=== PATIENT | male | born 1995 | race Caucasian/White ===

== ENCOUNTER 2022-12-28 20:51 | Emergency (ER) | payer SELFPAY ==
[2022-12-28 21:19] VITALS: BP 134/84
[2022-12-28] MEDS ORDERED: valACYclovir 500 MG TABLET PO STA (21:51)
--- NOTE | 2022-12-28 22:21 | ED Physician Documentation ---
PD HPI SKIN - Stated complaint Stated Complaint: MALE - Chief complaint Chief Complaint: Wound - History obtained from History obtained from: Patient, Other (automotive parts interpreter, Zupplernorberto) - Additional information Additional information: Patient is a 27-year-old male presenting for evaluation of a rash that is on his genital region for the past 2 days. Patient describes it as multiple blisters almost pimple-like. He has reported clear drainage from the wounds. He reports that it is painful. He has had no issues with urination. No blood in urine. No penile discharge. Denies prior history of similar rashes. Review of Systems Constitutional: denies: Fever Cardiac: denies: Chest pain / pressure Respiratory: denies: Dyspnea GI: denies: Abdominal Pain : denies: Dysuria, Discharge, Testicular pain Skin: reports: Rash PD PAST MEDICAL HISTORY - Past Medical History Past Medical History: No - Past Surgical History Past Surgical History: No - Present Medications Home Medications: Ambulatory Orders Medication Instructions Recorded Confirmed Fexofenadine [Dina] 60 mg PO DAILY PRN 12/28/22 12/28/22 valACYclovir [Valtrex] 1,000 mg PO BID 10 Days #40 tablet 12/28/22 - Allergies Allergies/Adverse Reactions: Allergies Allergy/AdvReac Type Severity Reaction Status Date / Time No Known Drug Allergies Allergy Verified 12/28/22 21:06 - Social History Does the pt smoke?: No Smoking Status: Never smoker Does the pt drink ETOH?: No Does the pt have substance abuse?: No - Immunizations Immunizations are current?: Yes - POLST Patient has POLST: No PD ED PE NORMAL - General General: Alert and oriented X 3, No acute distress, Well developed/nourished - HEENT HEENT: Atraumatic - Neck Neck: Supple, no meningeal sign - Respiratory Respiratory: No respiratory distress - Abdomen Abdomen: Soft, Non tender - Male Male : Filler And Trimmer present (Renetta ABRAHAM), Other (Multiple groupings of shallow ulcerations, blisters To penis and scrotum; No testicular swelling or tenderness) - Neuro Neuro: Normal speech Results - Vitals Vitals: Vital Signs - 24 hr 12/28/22 21:06 Temperature 36.5 C Heart Rate 86 Respiratory 16 Rate Blood Pressure 134/84 H O2 Saturation 96 Oxygen O2 Source Room air - Labs Labs: Laboratory Tests 12/28/22 21:50 Chlam trachomat DNA PCR NEGATIVE N.gonorrhoeae DNA (PCR) NEGATIVE T. vaginalis (PCR) NEGATIVE PD Medical Decision Making - ED course ED course: Patient with rash to genital region. Concerning for herpes rash. I discussed this with the patient using a automotive parts interpreter. I have sent a swab for HSV. I discussed treatment well with valacyclovir and need for close follow-up with walk-in clinic to follow-up on swab result as well as to discuss further management as patient does not currently have a PCP. Patient is agreeable to this treatment. Urine analysis was also sent for gonorrhea and chlamydia testing which is negative.Patient counseled on worsening symptoms to return for. Departure - Departure Disposition: Home, Self Care Clinical Impression: Genital herpes Condition: Stable Instructions: ED Herpes Simplex Virus Type 2 Prescriptions: valACYclovir [Valtrex] 1,000 mg PO BID 10 Days #40 tablet Print Language: Tuvaluan Comments: I am concerned that the rash you have on your genital region is related to a herpes outbreak. Therefore I have started you on an antiviral medicine called valacyclovir. We have also sent a swab to try and confirm this diagnosis. I would recommend follow-up with the walk-in clinic in 7 to 10 days to make sure that your symptoms are getting better and to review your swab as well as to discuss Possibly starting a maintenance dose of medicine to prevent other outbreaks. If you develop any worsening symptoms please return to the emergency department. I sent your prescription to [facility]. No sexual contact until your rash completely resolved. GOOGLE TRANSLATE Me preocupa que el sarpullido que tiene en la regin genital est relacionado con un brote de herpes. Por lo tanto, le comenc con un medicamento antiviral llamado valaciclovir. Boo hemos enviado un hisopo para intentar confirmar lesli diagnstico. Recomendara un seguimiento con la clnica ambulatoria en 7 a 10 john para asegurarse de que terrence sntomas estn mejorando y para revisar cesar hisopo, as yakov para discutir la posibilidad de comenzar kyle dosis de mantenimiento de la medicina para prevenir otros brotes. Si desarrolla algn sntoma que empeora, regrese al departamento de emergencias. Envi cesar receta a [facility]. No tenga contacto sexual hasta que cesar sarpullido se haya resuelto por completo. Discharge Date/Time: 12/28/22 22:40
[2022-12-29 00:18] LABS: CHLAMYDIA TRACHOMATIS DNA NEGATIVE (NEGATIVE); NEISSERIA GONORRHOEAE DNA NEGATIVE (NEGATIVE); TRICHOMONAS VAGINALIS DNA NEGATIVE (NEGATIVE)
[2022-12-31 21:07] LABS: HSV-1 DNA Negative (Negative); HSV-2 DNA Negative (Negative)
== END 2022-12-28 22:40 | disposition home or self-care (01) ==
LOC: ED 20:51
DX: A60.01 Herpesviral infection of penis (principal); A60.02 Herpesviral infection of other male genital organs
CPT/HCPCS: 87491; 87529; 87591; 87661; 99283; A9270; 87252

== ENCOUNTER 2022-12-31 19:19 | Emergency (ER) | payer SELFPAY ==
[2022-12-31 20:02] VITALS: BP 136/86
[2022-12-31 20:20] LABS: BILIRUBIN,URINE NEGATIVE (NEGATIVE); GLUCOSE, URINE (UA) NEGATIVE (NEGATIVE); KETONES,URINE (UA) NEGATIVE (NEGATIVE); LEUKOCYTE ESTERASE, URINE NEGATIVE (NEGATIVE); NITRITE,URINE NEGATIVE (NEGATIVE); OCCULT BLOOD,URINE NEGATIVE (NEGATIVE); PH,URINE 6.5 PH (5.0-7.5); PROTEIN,URINE NEGATIVE (NEGATIVE); UROBILINOGEN,URINE 0.2 (NORMAL) E.U./dL (NORMAL)
[2022-12-31 20:21] LABS: CLARITY,URINE CLEAR (CLEAR)
--- NOTE | 2022-12-31 20:35 | ED Physician Documentation ---
PD HPI MALE - Stated complaint Stated Complaint: MALE - Chief complaint Chief Complaint: Abd Pain - History obtained from History obtained from: Patient, Family (Patient's who is in ED at patient's bedside.) - History of Present Illness Recently seen: Emergency Dept - Additional information Additional information: Patient presents for painful rash on his genitals, groin, radiating around to buttocks. He was treated and released from this emergency department 3 days ago for painful rash on his genitals. The of the patient says that the rash on genitals began approximately 5 or 6 days ago. However, the groin rash that also involves his perineum and buttocks has been present for approximate 1 year. He has not seen a medical professional for this rash until he was here 3 days ago. Denies penile discharge. Patient was prescribed valacyclovir, 10-day course, when he was here 3 days ago. He presents due to worsening pain associated with the rash. Denies fever. Review of Systems Constitutional: denies: Fever : denies: Dysuria, Discharge Skin: reports: Rash PD PAST MEDICAL HISTORY - Past Medical History Past Medical History: No Cardiovascular: None Respiratory: None Neuro: None Endocrine/Autoimmune: None GI: None : None HEENT: None Psych: None Musculoskeletal: None Derm: None - Past Surgical History Past Surgical History: No - Present Medications Home Medications: Ambulatory Orders Medication Instructions Recorded Confirmed Fexofenadine [Dina] 60 mg PO DAILY PRN 12/28/22 12/31/22 valACYclovir [Valtrex] 1,000 mg PO BID 10 Days #40 tablet 12/28/22 Clotrimazole 1% Cream [Lotrimin 1% 1 gm TP BID #60 gm 12/31/22 Cream] Doxycycline [Vibramycin] 100 mg PO BID #14 tablet 12/31/22 HYDROcod/ACETAM 5/325 [Widen 5/325] 1 - 2 tablet PO Q6H PRN #14 tablet 12/31/22 - Allergies Allergies/Adverse Reactions: Allergies Allergy/AdvReac Type Severity Reaction Status Date / Time No Known Drug Allergies Allergy Verified 12/31/22 19:51 - Social History Does the pt smoke?: No Smoking Status: Never smoker Does the pt drink ETOH?: No Does the pt have substance abuse?: No - Immunizations Immunizations are current?: Yes - POLST Patient has POLST: No PD ED PE NORMAL - Vitals Vital signs reviewed: Yes - General General: Alert and oriented X 3, No acute distress, Well developed/nourished PD ED PE EXPANDED - Male Male : Other (confluent, raised erythema bilateral inguinal creases, perineum, and gluteal cleft. there are sharp margins. the margins on the posterior aspect (gluteal cleft) are white, scaling. the inguinal creases include areas that are white, moist. there are a few intact papules on shaft of penis. ). No: Discharge Results - Vitals Vitals: Vital Signs - 24 hr 12/31/22 19:35 Temperature 36.6 C Heart Rate 91 Respiratory 18 Rate Blood Pressure 136/86 H O2 Saturation 99 Oxygen O2 Source Room air - Labs Labs: Laboratory Tests 12/31/22 19:40 Urine Color YELLOW Urine Clarity CLEAR Urine pH 6.5 Ur Specific [place] 1.020 Urine Protein NEGATIVE Urine Glucose (UA) NEGATIVE Urine Ketones NEGATIVE Urine Occult Blood NEGATIVE Urine Nitrite NEGATIVE Urine Bilirubin NEGATIVE Urine Urobilinogen 0.2 (NORMAL) Ur Leukocyte Esterase NEGATIVE Ur Microscopic Review NOT INDICATED Urine Culture Comments NOT INDICATED PD Medical Decision Making - ED course Complexity details: considered differential, d/w patient, d/w family ED course: Patient returns the emergency department after being treated and released 2 days ago for rash on penis and groin. He was prescribed valacyclovir which he failed and is taking as prescribed. The reason for the return is worsening pain associate with a rash in the groin. Leann exam, the majority of the rash is strongly suggestive of tinea cruris. I am prescribing 3 weeks of twice daily clotrimazole cream. I recommended to him that he continues the valacyclovir as prescribed. In addition, because of areas of confluent erythema in bilateral inguinal regions, I am also prescribing doxycycline for possible bacterial superinfection (cellulitis). Finally, for his pain, he is given a take-home pack of Vicodin and short course is prescribed. I note that results of testing performed in ED 12/28/22 are negative for gonorrhea, chlamydia, and HSV I and II. I am prescribing a short course of short-acting opioid pain medication for this patient. I have reviewed the patients [employer]PORATE [employer] OFFICER and no concerning findings were noted. I have discussed that the opioids are for short term therapy only, and will not be refilled from the ED. Departure - Departure Disposition: 01 Home, Self Care Clinical Impression: Tinea cruris Cellulitis Qualifiers: Site of cellulitis: trunk Site of cellulitis of trunk: groin Qualified Code(s): L03.314 - Cellulitis of groin Condition: Good Instructions: ED Infec Skin Cellulitis, ED Tinea Cruris General Follow-Up: Rox Fernández MD [Provider Admit Priv/Credential] - Prescriptions: Clotrimazole 1% Cream [Lotrimin 1% Cream] 1 gm TP BID #60 gm HYDROcod/ACETAM 5/325 [Widen 5/325] 1 - 2 tablet PO Q6H PRN #14 tablet PRN Reason: Pain Doxycycline [Vibramycin] 100 mg PO BID #14 tablet Print Language: Belarusian Comments: Continue with the antiviral medication that was prescribed on your previous visit (December 28). In addition to the valacyclovir that you are taking, I am prescribing you THREE more medications. I am prescribing an antifungal medication; I think that most of the rash, possibly all of it, is due to a fungal infection sometimes called "jock itch". The anti-fungal medication is called clotrimazole. Apply it to the rash twice per day for up to three weeks (can stop once the rash resolves). There are some areas in the groin that look like they might also have become infected by a bacteria; this infection is called cellulitis, and I am prescribing an antibiotic (doxycycline) for this. I am also prescribing Vicodin (narcotic/opiate pain medication). Do not drive for at least 6 hours after taking a dose of the Vicodin, as it might make you drowsy. Try to limit the use of the vicodin to bedtime. Contact your primary care provider (your doctor) tomorrow when the office next opens to arrange for the next available appointment for reevaluation. I am prescribing a short course of narcotic pain medication for you. These are potentially dangerous and addictive medications that should be used carefully. These medications may constipate you. Take an [id number] stool softener (docusate) twice daily with plenty of water while taking these medications. If you go 24 hours without a bowel movement, take [id number] miralax, per package instructions. Do not drink or drive while taking these medications. If you received narcotic or sedating medications while in the emergency department, do not drive for 24 hours. Store this medication in a safe, secure place and out of reach of children. It is a violation of federal law to give or sell this medication to another person or to use in a manner other than prescribed. The ED will not refill narcotic prescriptions, including prescriptions lost or stolen. To dispose of unwanted medications: 1. [facility] [address] in [place] has a medication drop box. They accept prescription medications (in pill form) Friday through Friday 9:00 a.m. to 5:00 p.m. 2. [facility] accepts prescription medications (in pill form only) for disposal year round. Call for more information. 3. Contact the [facility] for the next [facility] sponsored prescription drug collection event. , [phone], or [phone]; Discharge Date/Time: 12/31/22 21:21
[2022-12-31] MEDS ORDERED: DOXYCYCLINE 100 MG TABLET PO STA (20:57)
[2022-12-31] MEDS ORDERED: HYDROcod/ACET 5/325 Prepack 4 PO STA (20:57)
== END 2022-12-31 21:21 | disposition home or self-care (01) ==
LOC: ED 19:19
DX: L03.314 Cellulitis of groin (principal); B35.6 Tinea cruris
CPT/HCPCS: 81003; 99283; 99284; A9270; 81001; 87086